=== PATIENT | female | born 1985 | race Two or more races ===

== ENCOUNTER 2017-01-30 10:55 | Outpatient (CLI) | payer BC ==
[2017-01-30 11:29] LABS: BASOPHILS % (AUTO) 0.4 % (0.0-2.0); EOSINOPHILS % (AUTO) 0.6 % (0.0-6.0); HEMATOCRIT 41 % (33-45); HEMOGLOBIN 13.4 g/dL (11.5-14.8); LYMPHOCYTES # (AUTO) 2.3 /CMM (0.8-4.8); LYMPHOCYTES % (AUTO) 35.4 % (20.0-44.0); MEAN CORPUSCULAR HEMOGLOBIN 29 PG (26.0-33.0); MEAN CORPUSCULAR HGB CONC 33 g/dl (31.0-36.0); MEAN CORPUSCULAR VOLUME 90 fL (82-100); MONOCYTES # (AUTO) 0.1 /CMM (0.1-1.30); MONOCYTES % (AUTO) 2.2 % (2.0-12.0); NEUTROPHILS % (AUTO) 61.4 % (43.0-81.0); PLATELET COUNT (AUTO) 205 /CMM (150-450); RED BLOOD CELL COUNT(AUTO) 4.56 MIL/uL (4.0-5.2); WHITE BLOOD COUNT (AUTO) 6.5 K/uL (4.3-11.0)
[2017-01-30 11:39] LABS: APPEARANCE,URINE CLEAR (CLEAR); BILIRUBIN,URINE NEGATIVE (NEGATIVE); BLOOD, URINE NEGATIVE Ery/uL (NEGATIVE); COLOR,URINE YELLOW (YELLOW); KETONES,URINE NEGATIVE (NEGATIVE); LEUKOCYTE ESTERASE ,URINE NEGATIVE (NEGATIVE); NITRITE, URINE NEGATIVE (NEGATIVE); PH,URINE 7.5 (5.0-8.0); PROTEIN,URINE NEGATIVE (NEGATIVE); UGLUCOSE NEGATIVE (NEGATIVE); UROBILINOGEN,URINE 0.2 EU/dL (0.2)
[2017-01-30 11:45] LABS: BILIRUBIN,TOTAL 0.2 mg/dL (0.2-1.0); CALCIUM, SERUM 9.2 mg/dL (8.5-10.1); CREATININE 0.8 mg/dL (0.6-1.3); POTASSIUM 4.5 mmol/L (3.5-5.1); TOTAL PROTEIN, SERUM 7.4 g/dL (6.4-8.2)
[2017-01-30 11:53] LABS: THYROID STIMULATING HORMONE 1.788 uIU/mL (0.358-3.74)
[2017-01-31 14:17] LABS: HEPATITIS B SURFACE AB Non Reactive (.)
== END 2017-01-30 23:59 | disposition home or self-care (01) ==
LOC: LAB 10:55
PROVIDERS: ATTEND Legal Medicine
DX: Z00.00 Encounter for general adult medical examination without abnormal findings (principal)
CPT/HCPCS: 36415; 80053-TC; 80061-TC; 81000-TC; 84443-TC; 85025-TC; 86706; 87340

== ENCOUNTER 2017-05-09 07:24 | Emergency (ER) | payer BC, OTHER ==
[~2017-05-09] VITALS: Ht 162.6 cm; Wt 68.9 kg
[2017-05-09 07:34] VITALS: BP 124/83
[2017-05-09] MEDS ORDERED: LIDOCAINE VISCOUS 2% UD 15 ML UDC ONE (07:50)
[2017-05-09] MEDS ORDERED: LIDOCAINE VISCOUS 2% UD 15 ML UDC MM ONE (08:00)
--- NOTE | 2017-05-09 08:06 | NUR ---
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
== END 2017-05-09 09:22 | disposition home or self-care (01) ==
LOC: ER 07:26
DX: F45.8 Other somatoform disorders (principal)
CPT/HCPCS: 99282; A4606; Z7610 ×2

== ENCOUNTER 2017-07-17 16:05 | Outpatient (CLI) | payer BC, OTHER ==
[2017-07-19 15:01] LABS: QFT MITOGEN VALUE 8.02 IU/mL (.); QFT TB AG MINUS NIL VALUE <0.00 IU/mL (.); QFT TB AG VALUE 0.24 IU/mL (.); QFT TB GOLD Negative (Negative)
== END 2017-07-17 23:59 | disposition home or self-care (01) ==
LOC: LAB 16:05
PROVIDERS: ATTEND Legal Medicine
DX: Z00.00 Encounter for general adult medical examination without abnormal findings (principal)
CPT/HCPCS: 36415

== ENCOUNTER 2017-08-18 14:53 | Outpatient (CLI) | payer BC, OTHER ==
[2017-08-18 16:01] LABS: BASOPHILS % (AUTO) 0.5 % (0.0-2.0); EOSINOPHILS % (AUTO) 0.4 % (0.0-6.0); HEMATOCRIT 39 % (33-45); LYMPHOCYTES # (AUTO) 2.3 /CMM (0.8-4.8); LYMPHOCYTES % (AUTO) 32.2 % (20.0-44.0); MEAN CORPUSCULAR HEMOGLOBIN 30 PG (26.0-33.0); MEAN CORPUSCULAR HGB CONC 33 g/dl (31.0-36.0); MEAN CORPUSCULAR VOLUME 90 fL (82-100); MONOCYTES # (AUTO) 0.1 /CMM (0.1-1.30); MONOCYTES % (AUTO) 1.8 % (2.0-12.0); NEUTROPHILS # (AUTO) 4.6 /CMM (1.8-8.9); NEUTROPHILS % (AUTO) 65.1 % (43.0-81.0); PLATELET COUNT (AUTO) 215 /CMM (150-450); RED BLOOD CELL COUNT(AUTO) 4.35 MIL/uL (4.0-5.2); WHITE BLOOD COUNT (AUTO) 7.1 K/uL (4.3-11.0)
[2017-08-18 16:15] LABS: ALBUMIN 3.7 g/dL (3.4-5.0); BILIRUBIN,TOTAL 0.2 mg/dL (0.2-1.0); CALCIUM, SERUM 8.6 mg/dL (8.5-10.1); CREATININE 0.8 mg/dL (0.6-1.3); MAGNESIUM 1.9 mg/dL (1.8-2.4); PHOSPHORUS 3.3 mg/dL (2.5-4.9); POTASSIUM 3.8 mmol/L (3.5-5.1); TOTAL PROTEIN, SERUM 7.1 g/dL (6.4-8.2)
[2017-08-18 16:25] LABS: THYROID STIMULATING HORMONE 1.183 uIU/mL (0.358-3.74)
[2017-08-19 10:20] LABS: *MUMPS AB (IGG) >300.0 AU/mL (Immune >10.9); VARICELLA ZOSTER IgG 905 index (Immune >165)
[2017-08-19 12:16] LABS: RUBELLA ANTIBODIES, IGG 5.01 index (Immune >0.99)
== END 2017-08-18 23:59 | disposition home or self-care (01) ==
LOC: LAB 14:53
PROVIDERS: ATTEND Legal Medicine
DX: Z00.01 Encounter for general adult medical examination with abnormal findings (principal); R79.89 Other specified abnormal findings of blood chemistry
CPT/HCPCS: 36415; 80053-TC; 83735-TC; 84100-TC; 84443-TC; 85025-TC; 86706; 86735; 86762; 86765; 86787; 86850-TC; 87340

== ENCOUNTER 2018-02-24 15:51 | Outpatient (CLI) | payer BC, OTHER ==
[2018-02-24 17:37] LABS: BASOPHILS # (AUTO) 0.2 /CMM (0.0-0.2); BASOPHILS % (AUTO) 2.6 % (0.0-2.0); EOSINOPHILS % (AUTO) 0.7 % (0.0-6.0); HEMATOCRIT 40 % (33-45); HEMOGLOBIN 13.4 g/dL (11.5-14.8); LYMPHOCYTES # (AUTO) 2.8 /CMM (0.8-4.8); MEAN CORPUSCULAR HGB CONC 34 g/dl (31.0-36.0); MEAN CORPUSCULAR VOLUME 88 fL (82-100); MONOCYTES # (AUTO) 0.4 /CMM (0.1-1.30); MONOCYTES % (AUTO) 5.8 % (2.0-12.0); NEUTROPHILS # (AUTO) 3.1 /CMM (1.8-8.9); NEUTROPHILS % (AUTO) 47.9 % (43.0-81.0); PLATELET COUNT (AUTO) 258 /CMM (150-450); RDW COEFFICIENT OF VARIATION 12.9 (11.5-15.0); RED BLOOD CELL COUNT(AUTO) 4.52 MIL/uL (4.0-5.2); WHITE BLOOD COUNT (AUTO) 6.5 K/uL (4.3-11.0)
[2018-02-24 18:04] LABS: APPEARANCE,URINE SL CLOUDY (CLEAR); BILIRUBIN,URINE NEGATIVE (NEGATIVE); BLOOD, URINE NEGATIVE Ery/uL (NEGATIVE); COLOR,URINE YELLOW (YELLOW); KETONES,URINE NEGATIVE (NEGATIVE); LEUKOCYTE ESTERASE ,URINE NEGATIVE (NEGATIVE); NITRITE, URINE NEGATIVE (NEGATIVE); PROTEIN,URINE NEGATIVE (NEGATIVE); UGLUCOSE NEGATIVE (NEGATIVE); UROBILINOGEN,URINE 0.2 EU/dL (0.2)
[2018-02-24 18:11] LABS: ALBUMIN 4.1 g/dL (3.4-5.0); BILIRUBIN,TOTAL 0.4 mg/dL (0.2-1.0); CALCIUM, SERUM 8.4 mg/dL (8.5-10.1); CREATININE 0.9 mg/dL (0.6-1.3); POTASSIUM 3.5 mmol/L (3.5-5.1); TOTAL PROTEIN, SERUM 7.6 g/dL (6.4-8.2)
[2018-02-24 18:29] LABS: THYROID STIMULATING HORMONE 2.058 uIU/mL (0.358-3.74)
[2018-02-26 16:14] LABS: QFT MITOGEN VALUE 7.22 IU/mL (.); QFT TB AG MINUS NIL VALUE <0.00 IU/mL (.); QFT TB AG VALUE 0.12 IU/mL (.); QFT TB GOLD Negative (Negative)
== END 2018-02-24 23:59 | disposition home or self-care (01) ==
LOC: LAB 15:51
PROVIDERS: ATTEND Legal Medicine
DX: Z00.01 Encounter for general adult medical examination with abnormal findings (principal); R79.89 Other specified abnormal findings of blood chemistry
CPT/HCPCS: 36415; 80053-TC; 80061-TC; 81000-TC; 82728-TC; 82746; 83540-TC; 84443-TC; 85025-TC

== ENCOUNTER 2020-05-11 08:04 | Outpatient (CLI) | payer BC, OTHER ==
[2020-05-11 09:18] LABS: BASOPHILS % (AUTO) 0.7 % (0.0-2.0); EOSINOPHILS % (AUTO) 0.7 % (0.0-6.0); HEMATOCRIT 41 % (33-45); HEMOGLOBIN 13.5 g/dL (11.5-14.8); LYMPHOCYTES # (AUTO) 1.9 /CMM (0.8-4.8); MEAN CORPUSCULAR HGB CONC 33 g/dl (31.0-36.0); MEAN CORPUSCULAR VOLUME 90 fL (82-100); MONOCYTES # (AUTO) 0.4 /CMM (0.1-1.30); MONOCYTES % (AUTO) 8.4 % (2.0-12.0); NEUTROPHILS # (AUTO) 2.5 /CMM (1.8-8.9); NEUTROPHILS % (AUTO) 51.2 % (43.0-81.0); PLATELET COUNT (AUTO) 211 /CMM (150-450); RED BLOOD CELL COUNT(AUTO) 4.55 MIL/uL (4.0-5.2); WHITE BLOOD COUNT (AUTO) 4.8 K/uL (4.3-11.0)
[2020-05-11 09:19] LABS: ALBUMIN 4.2 g/dL (3.4-5.0); BILIRUBIN,TOTAL 0.4 mg/dL (0.2-1.0); CALCIUM, SERUM 8.8 mg/dL (8.5-10.1); CREATININE 0.9 mg/dL (0.6-1.3); TOTAL PROTEIN, SERUM 7.5 g/dL (6.4-8.2)
[2020-05-11 09:27] LABS: THYROID STIMULATING HORMONE 0.95 uIU/mL (0.358-3.74)
[2020-05-11 10:04] LABS: APPEARANCE,URINE CLEAR (CLEAR); BILIRUBIN,URINE NEGATIVE (NEGATIVE); BLOOD, URINE NEGATIVE Ery/uL (NEGATIVE); COLOR,URINE YELLOW (YELLOW); KETONES,URINE NEGATIVE (NEGATIVE); LEUKOCYTE ESTERASE ,URINE NEGATIVE (NEGATIVE); NITRITE, URINE NEGATIVE (NEGATIVE); PROTEIN,URINE NEGATIVE (NEGATIVE); UGLUCOSE NEGATIVE (NEGATIVE); UROBILINOGEN,URINE 0.2 EU/dL (0.2)
== END 2020-05-11 23:59 | disposition home or self-care (01) ==
LOC: LAB 08:04
PROVIDERS: ATTEND Legal Medicine
DX: R10.9 Unspecified abdominal pain (principal)
CPT/HCPCS: 36415; 80053-TC; 81000-TC; 82150-TC; 83540-TC; 83615-TC; 83690-TC; 84443-TC; 85025-TC

== ENCOUNTER 2020-05-14 08:59 | Outpatient (CLI) | payer BC, OTHER | END 2020-05-14 23:59 | disposition home or self-care (01) | LOC: US 08:59 | PROVIDERS: ATTEND Legal Medicine | DX: R10.9 Unspecified abdominal pain (principal) | CPT/HCPCS: 76700-TC ==

== ENCOUNTER 2020-06-18 10:59 | Outpatient (CLI) | payer BC, OTHER ==
[2020-06-18 12:11] LABS: ALBUMIN 3.9 g/dL (3.4-5.0); BILIRUBIN,TOTAL 0.4 mg/dL (0.2-1.0); CALCIUM, SERUM 8.5 mg/dL (8.5-10.1); CREATININE 0.9 mg/dL (0.6-1.3); POTASSIUM 4.4 mmol/L (3.5-5.1); TOTAL PROTEIN, SERUM 7.2 g/dL (6.4-8.2)
[2020-06-18 12:23] LABS: THYROID STIMULATING HORMONE 0.998 uIU/mL (0.358-3.74)
[2020-06-18 12:34] LABS: BASOPHILS # (AUTO) 0.3 /CMM (0.0-0.2); EOSINOPHILS % (AUTO) 0.2 % (0.0-6.0); HEMATOCRIT 40 % (33-45); HEMOGLOBIN 13.1 g/dL (11.5-14.8); LYMPHOCYTES # (AUTO) 1.5 /CMM (0.8-4.8); MEAN CORPUSCULAR HGB CONC 33 g/dl (31.0-36.0); MEAN CORPUSCULAR VOLUME 90 fL (82-100); MONOCYTES # (AUTO) 0.2 /CMM (0.1-1.30); MONOCYTES % (AUTO) 4.3 % (2.0-12.0); NEUTROPHILS # (AUTO) 3.3 /CMM (1.8-8.9); NEUTROPHILS % (AUTO) 62.3 % (43.0-81.0); PLATELET COUNT (AUTO) 223 /CMM (150-450); RED BLOOD CELL COUNT(AUTO) 4.37 MIL/uL (4.0-5.2); WHITE BLOOD COUNT (AUTO) 5.3 K/uL (4.3-11.0)
[2020-06-18 12:39] LABS: BASOPHILS % (AUTO) 5.2 % (0.0-2.0)
[2020-06-18 12:41] LABS: APPEARANCE,URINE CLEAR (CLEAR); BILIRUBIN,URINE NEGATIVE (NEGATIVE); BLOOD, URINE NEGATIVE Ery/uL (NEGATIVE); COLOR,URINE YELLOW (YELLOW); KETONES,URINE NEGATIVE (NEGATIVE); LEUKOCYTE ESTERASE ,URINE NEGATIVE (NEGATIVE); NITRITE, URINE NEGATIVE (NEGATIVE); PROTEIN,URINE NEGATIVE (NEGATIVE); UGLUCOSE NEGATIVE (NEGATIVE)
[2020-06-19 09:14] LABS: FOLIC ACID > 20.0 ng/mL (>3.0)
== END 2020-06-18 23:59 | disposition home or self-care (01) ==
LOC: LAB 10:59
PROVIDERS: ATTEND Legal Medicine
DX: I10 Essential (primary) hypertension (principal); E03.9 Hypothyroidism, unspecified; E55.9 Vitamin D deficiency, unspecified; R10.9 Unspecified abdominal pain; Z00.00 Encounter for general adult medical examination without abnormal findings
CPT/HCPCS: 80053-TC; 80061-TC; 81000-TC; 82306; 82670; 82728-TC; 83540-TC; 84443-TC; 85025-TC

== ENCOUNTER 2020-06-20 09:03 | Outpatient (CLI) | payer BC, OTHER | END 2020-06-20 23:59 | disposition home or self-care (01) | LOC: CT 09:03 | PROVIDERS: ATTEND Legal Medicine | DX: K42.9 Umbilical hernia without obstruction or gangrene (principal) ==

== ENCOUNTER 2020-07-11 10:11 | Outpatient (CLI) | payer BC, OTHER ==
[2020-07-11 12:07] LABS: BASOPHILS % (AUTO) 0.6 % (0.0-2.0); EOSINOPHILS % (AUTO) 0.6 % (0.0-6.0); HEMATOCRIT 40 % (33-45); HEMOGLOBIN 12.9 g/dL (11.5-14.8); LYMPHOCYTES # (AUTO) 2.3 /CMM (0.8-4.8); LYMPHOCYTES % (AUTO) 45.7 % (20.0-44.0); MEAN CORPUSCULAR HGB CONC 33 g/dl (31.0-36.0); MEAN CORPUSCULAR VOLUME 91 fL (82-100); MONOCYTES # (AUTO) 0.4 /CMM (0.1-1.30); MONOCYTES % (AUTO) 8.5 % (2.0-12.0); NEUTROPHILS # (AUTO) 2.2 /CMM (1.8-8.9); NEUTROPHILS % (AUTO) 44.6 % (43.0-81.0); PLATELET COUNT (AUTO) 209 /CMM (150-450); RED BLOOD CELL COUNT(AUTO) 4.35 MIL/uL (4.0-5.2)
[2020-07-12 07:47] LABS: FOLLICLE STIMULATION HORMONE 1.5 mIU/mL (.)
== END 2020-07-11 23:59 | disposition home or self-care (01) ==
LOC: LAB 10:11
PROVIDERS: ATTEND Legal Medicine
DX: N92.6 Irregular menstruation, unspecified (principal); Z00.00 Encounter for general adult medical examination without abnormal findings; Z11.1 Encounter for screening for respiratory tuberculosis
CPT/HCPCS: 36415; 82670; 83001; 84443-TC; 85025-TC; 86480

== ENCOUNTER 2020-09-06 10:59 | Outpatient (CLI) | payer BC, OTHER ==
[2020-09-06 12:11] LABS: BASOPHILS # (AUTO) 0.1 /CMM (0.0-0.2); BASOPHILS % (AUTO) 1.3 % (0.0-2.0); EOSINOPHILS % (AUTO) 0.4 % (0.0-6.0); HEMATOCRIT 39 % (33-45); HEMOGLOBIN 12.7 g/dL (11.5-14.8); LYMPHOCYTES # (AUTO) 1.9 /CMM (0.8-4.8); LYMPHOCYTES % (AUTO) 33.5 % (20.0-44.0); MEAN CORPUSCULAR HGB CONC 32 g/dl (31.0-36.0); MEAN CORPUSCULAR VOLUME 91 fL (82-100); MONOCYTES # (AUTO) 0.4 /CMM (0.1-1.30); MONOCYTES % (AUTO) 7.1 % (2.0-12.0); NEUTROPHILS # (AUTO) 3.2 /CMM (1.8-8.9); NEUTROPHILS % (AUTO) 57.7 % (43.0-81.0); PLATELET COUNT (AUTO) 219 /CMM (150-450); RED BLOOD CELL COUNT(AUTO) 4.31 MIL/uL (4.0-5.2); WHITE BLOOD COUNT (AUTO) 5.6 K/uL (4.3-11.0)
[2020-09-06 12:55] LABS: ALBUMIN 3.7 g/dL (3.4-5.0); BILIRUBIN,TOTAL 0.5 mg/dL (0.2-1.0); CALCIUM, SERUM 8.6 mg/dL (8.5-10.1); CREATININE 0.9 mg/dL (0.6-1.3); POTASSIUM 3.9 mmol/L (3.5-5.1)
== END 2020-09-06 23:59 | disposition home or self-care (01) ==
LOC: LAB 10:59
DX: R10.13 Epigastric pain (principal); R11.2 Nausea with vomiting, unspecified
CPT/HCPCS: 36415; 80053-TC; 85025-TC; 85730-TC

== ENCOUNTER 2020-10-13 20:30 | Emergency (ER) | payer BC, OTHER ==
[~2020-10-13] VITALS: Ht 162.6 cm; Wt 61.2 kg
[2020-10-13 20:31] VITALS: BP 134/65
== END 2020-10-13 21:40 | disposition home or self-care (01) ==
LOC: ER 20:32
DX: M25.571 Pain in right ankle and joints of right foot (principal); X50.1XXA Overexertion from prolonged static or awkward postures, initial encounter; Y93.01 Activity, walking, marching and hiking; Y92.89 Other specified places as the place of occurrence of the external cause; Y99.8 Other external cause status
CPT/HCPCS: 73610-TC

== ENCOUNTER 2020-10-24 11:15 | Outpatient (CLI) | payer BC | END 2020-10-24 23:59 | disposition home or self-care (01) | LOC: LAB 11:15 | DX: R10.13 Epigastric pain (principal) | CPT/HCPCS: 87045-TC; 87177; 87209 ==

== ENCOUNTER → 2021-07-31 | Outpatient (CLI) | payer BC ==
[2021-07-31 12:58] LABS: BASOPHILS % (AUTO) 0.5 % (0.0-2.0); EOSINOPHILS % (AUTO) 0.5 % (0.0-6.0); HEMATOCRIT 39 % (33-45); HEMOGLOBIN 12.6 g/dL (11.5-14.8); LYMPHOCYTES # (AUTO) 2.3 K/uL (0.8-4.8); LYMPHOCYTES % (AUTO) 48.6 % (20.0-44.0); MEAN CORPUSCULAR HGB CONC 33 g/dl (31.0-36.0); MEAN CORPUSCULAR VOLUME 92 fL (82-100); MONOCYTES # (AUTO) 0.3 K/uL (0.1-1.30); MONOCYTES % (AUTO) 6.3 % (2.0-12.0); NEUTROPHILS # (AUTO) 2.1 K/uL (1.8-8.9); NEUTROPHILS % (AUTO) 44.1 % (43.0-81.0); PLATELET COUNT (AUTO) 227 K/uL (150-450); RED BLOOD CELL COUNT(AUTO) 4.22 MIL/uL (4.0-5.2); WHITE BLOOD COUNT (AUTO) 4.7 K/uL (4.3-11.0)
[2021-07-31 13:17] LABS: BILIRUBIN,URINE NEGATIVE (NEGATIVE); COLOR,URINE YELLOW (YELLOW); LEUKOCYTE ESTERASE ,URINE NEGATIVE (NEGATIVE); NITRITE, URINE NEGATIVE (NEGATIVE); PROTEIN,URINE NEGATIVE (NEGATIVE); UGLUCOSE NEGATIVE (NEGATIVE); UROBILINOGEN,URINE 0.2 EU/dL (0.2)
[2021-07-31 13:41] LABS: THYROID STIMULATING HORMONE 1.759 uIU/mL (0.358-3.74); URIC ACID 4.5 mg/dL (2.6-7.2)
[2021-07-31 13:57] LABS: ALBUMIN 3.6 g/dL (3.4-5.0); BILIRUBIN,TOTAL 0.3 mg/dL (0.2-1.0); CALCIUM, SERUM 7.9 mg/dL (8.5-10.1); CREATININE 0.7 mg/dL (0.6-1.3); POTASSIUM 3.9 mmol/L (3.5-5.1); TOTAL PROTEIN, SERUM 6.8 g/dL (6.4-8.2)
[2021-07-31 15:43] LABS: BACTERIA,URINE None seen /HPF (None Seen); RBC,URINE 0-2 /HPF (0-2); SQUAMOUS EPITHELIAL CELL,UR Few /HPF (None Seen); WBC,URINE 0-2 /HPF (0-3)
== END | disposition home or self-care (01) ==
LOC: LAB 11:34
PROVIDERS: ATTEND Legal Medicine
DX: E78.5 Hyperlipidemia, unspecified (principal); N18.9 Chronic kidney disease, unspecified; E03.9 Hypothyroidism, unspecified; D64.9 Anemia, unspecified; E55.9 Vitamin D deficiency, unspecified; Z11.1 Encounter for screening for respiratory tuberculosis; Z00.00 Encounter for general adult medical examination without abnormal findings
CPT/HCPCS: 36415; 71046; 80053-TC; 80061-TC; 81001; 82306; 82607-TC; 82728-TC; 83540-TC; 83735-TC; 84443-TC; 84550-TC; 85025-TC; 86480

== ENCOUNTER 2021-08-05 10:18 | Outpatient (CLI) | payer BC ==
[2021-08-05 11:06] LABS: BASOPHILS # (AUTO) 0.1 K/uL (0.0-0.2); BASOPHILS % (AUTO) 0.9 % (0.0-2.0); EOSINOPHILS % (AUTO) 0.5 % (0.0-6.0); HEMATOCRIT 40 % (33-45); LYMPHOCYTES # (AUTO) 2.5 K/uL (0.8-4.8); LYMPHOCYTES % (AUTO) 45.7 % (20.0-44.0); MEAN CORPUSCULAR HGB CONC 33 g/dl (31.0-36.0); MEAN CORPUSCULAR VOLUME 92 fL (82-100); MONOCYTES # (AUTO) 0.3 K/uL (0.1-1.30); MONOCYTES % (AUTO) 5.9 % (2.0-12.0); NEUTROPHILS # (AUTO) 2.6 K/uL (1.8-8.9); PLATELET COUNT (AUTO) 215 K/uL (150-450); RED BLOOD CELL COUNT(AUTO) 4.33 MIL/uL (4.0-5.2); WHITE BLOOD COUNT (AUTO) 5.5 K/uL (4.3-11.0)
== END 2021-08-05 23:59 | disposition home or self-care (01) ==
LOC: LAB 10:18
PROVIDERS: ATTEND Obstetrics & Gynecology
DX: N72 Inflammatory disease of cervix uteri (principal)
CPT/HCPCS: 36415; 85025-TC

== ENCOUNTER 2022-07-14 12:46 | Outpatient (CLI) | payer SELFPAY | END 2022-07-14 23:59 | disposition home or self-care (01) | LOC: LAB 12:46 | PROVIDERS: ATTEND Legal Medicine | DX: Z23 Encounter for immunization (principal) | CPT/HCPCS: 36415; 86480 ==

== ENCOUNTER 2023-05-26 00:44 | Emergency (ER) | payer BC ==
[~2023-05-26] VITALS: Ht 165.1 cm; Wt 81.6 kg
[2023-05-26 00:52] VITALS: TEMP 98.1
--- NOTE | 2023-05-26 00:55 | NUR ---
BIBRA FROM HOME C/O GLF & HEMATOMA TO FOREHEAD. -LOC
[2023-05-26] MEDS ORDERED: ACETAMINOPHEN ES 500 MG TABLET PO ONE (01:30)
[2023-05-26] MEDS ORDERED: CYCLOBENZAPRINE 10 MG TABLET PO ONE (01:30)
[2023-05-26] MEDS ORDERED: ACETAMINOPHEN ES 500 MG TABLET ONE (01:34)
[2023-05-26] MEDS ORDERED: CYCLOBENZAPRINE 10 MG TABLET ONE (01:34)
--- NOTE | 2023-05-26 01:40 | NUR ---
PATIENT TAKEN TO CT VIA [facility]
--- NOTE | 2023-05-26 01:56 | NUR ---
PATIENT RETURNED FROM CT
[2023-05-26 04:06] LABS: BASOPHILS # (AUTO) 0.1 K/uL (0.0-0.2); BASOPHILS % (AUTO) 0.7 % (0.0-2.0); EOSINOPHILS % (AUTO) 0.1 % (0.0-6.0); HEMATOCRIT 38 % (33-45); HEMOGLOBIN 12.7 g/dL (11.5-14.8); LYMPHOCYTES # (AUTO) 2.3 K/uL (0.8-4.8); LYMPHOCYTES % (AUTO) 23.4 % (20.0-44.0); MEAN CORPUSCULAR HGB CONC 33 g/dl (31.0-36.0); MEAN CORPUSCULAR VOLUME 88 fL (82-100); MONOCYTES # (AUTO) 0.6 K/uL (0.1-1.30); MONOCYTES % (AUTO) 6.5 % (2.0-12.0); NEUTROPHILS # (AUTO) 6.7 K/uL (1.8-8.9); NEUTROPHILS % (AUTO) 69.3 % (43.0-81.0); PLATELET COUNT (AUTO) 241 K/uL (150-450); RED BLOOD CELL COUNT(AUTO) 4.32 MIL/uL (4.0-5.2); WHITE BLOOD COUNT (AUTO) 9.6 K/uL (4.3-11.0)
--- NOTE | 2023-05-26 04:59 | NUR ---
Patient discharged to home in stable condition. Written and verbal after care instructions given. Patient verbalizes understanding of instruction.
[2023-05-26 05:01] VITALS: BP 119/77; O2SAT 100
== END 2023-05-26 05:14 | disposition home or self-care (01) ==
LOC: ER 00:49
DX: S00.83XA Contusion of other part of head, initial encounter (principal); R51.9 Headache, unspecified; M54.2 Cervicalgia; M25.512 Pain in left shoulder; W18.39XA Other fall on same level, initial encounter; Y93.89 Activity, other specified; Y92.89 Other specified places as the place of occurrence of the external cause; Y99.8 Other external cause status
CPT/HCPCS: 36415; 70450-TC; 72125-TC; 73030-TC; 85025-TC